=== PATIENT | female | born 1995 | race Caucasian/White ===

== ENCOUNTER 2021-11-17 19:26 | Emergency (ER) | payer SELFPAY ==
[~2021-11-17] VITALS: Ht 157.5 cm; Wt 50.8 kg
[2021-11-17 19:29] VITALS: BP 143/81
--- NOTE | 2021-11-17 19:29 | NUR ---
[employer]. TAKEN TO CHAIR C
--- NOTE | 2021-11-17 22:05 | NUR ---
PATIENT BIB [place] [employer]. PATIENT EXAMINED BY DR. GUERIN. PATIENT MEDICALLY CLEARED AND RELEASED IN CUSTODY IN STABLE CONDITION. ORIGINAL PRE-BOOK FORM GIVEN TO OFFICER JOSE, #[id number].
== END 2021-11-17 22:05 ==
LOC: MED 19:26
DX: F10.129 Alcohol abuse with intoxication, unspecified (principal); Z02.89 Encounter for other administrative examinations; V89.2XXA Person injured in unspecified motor-vehicle accident, traffic, initial encounter; Y93.89 Activity, other specified; Y92.89 Other specified places as the place of occurrence of the external cause; Y99.8 Other external cause status
CPT/HCPCS: 99283